=== PATIENT | male | born 1975 | race Caucasian/White ===

== ENCOUNTER → 2017-02-19 | Outpatient (CLI) | payer BC ==
[~2017-02-19] MED LIST: BAYE325T12 PO; OMEP20CA3 PO
[2017-02-19 15:50] LABS: MEAN CORPUSCULAR HEMOGLOBIN 31.8 pg (27.0-33.0); MEAN CORPUSCULAR HGB CONC 35.5 g/dl (32.0-36.5); MEAN CORPUSCULAR VOLUME 89.4 fl (80.0-96.0); RED CELL DISTRIBUTION WIDTH 13.2 % (11.5-14.5); WHITE BLOOD COUNT 8.9 K/mm3 (4.0-10.0)
--- NOTE | 2017-02-19 15:57 | REP ---
PA and lateral chest: Comparison is 03/09/2012. The lung martino are clear. The cardiac size is normal The artie, mediastinum, and bony thorax are unremarkable. Impression: Negative PA and lateral chest. There is no interval change. Signed by Koby Melendrez MD 02/19/2017 03:48 P
[2017-02-19 16:14] LABS: ALBUMIN 4.1 GM/DL (3.2-5.2); ALBUMIN/GLOBULIN RATIO 1.37 (1.00-1.93); ALKALINE PHOSPHATASE 49 U/L (45-117); ALT/SGPT 59 U/L (12-78); ANION GAP 7 MEQ/L (8-16); AST/SGOT 29 U/L (15-37); BILIRUBIN,TOTAL 0.9 MG/DL (0.2-1.0); BLOOD UREA NITROGEN 15 MG/DL (7-18); CALCIUM LEVEL 8.8 MG/DL (8.5-10.1); CARBON DIOXIDE LEVEL 26 MEQ/L (21-32); CHLORIDE LEVEL 103 MEQ/L (98-107); CHOLESTEROL LEVEL 198 MG/DL (<200); CREATININE FOR GFR 0.96 MG/DL (0.70-1.30); GLOMERULAR FILTRATION RATE > 60.0 (>60); GLUCOSE, FASTING 95 MG/DL (70-105); SODIUM LEVEL 136 MEQ/L (136-145); TOTAL PROTEIN 7.1 GM/DL (6.4-8.2); TRIGLYCERIDES LEVEL 185 MG/DL (<150)
--- NOTE | 2017-02-19 19:15 | ECGEPIP ---
Stationary ECG Study [facility] Test Date: 2017-02-19 Pat Name: CORTES GALLEGOS Department: Room: - Gender: M Insurance Sales Agent: JONNA : [id number] Requested By: Yasir Greene Order Number: [id number] Reading MD: Gopal Olivo Measurements Intervals [place] Rate: 75 P: 15 FL: 143 QRS: -15 QRSD: 73 T: 7 QT: 356 QTc: 398 Interpretive Statements Normal sinus rhythm. Prominent voltage in aVL suggestive of LVH by Cody criteria. Subtle T-wave flattening. No prior tracing for comparison. Clinical correlation advised Electronically Signed On 02-19-2017 19:15:10 EDT by Gopal Olivo
== END ==
LOC: M LAB 14:59
PROVIDERS: ATTEND Family Medicine
DX: I10 Essential (primary) hypertension (principal)

== ENCOUNTER → 2017-02-23 | Outpatient (CLI) | payer BC ==
--- NOTE | 2017-02-23 13:21 | REP ---
REASON: Right arm weakness and slurred speech. COMPARISON: None. The craniovertebral junction is within normal limits. No abnormal signal is seen in the imaged portions of the spinal cord. The ventricles and sulci are within normal limits. There are no extra-axial fluid collections. There is no shift of the midline structures. There is floor hypersignal in the left posterior temporoparietal region which is of DWI high signal and slight ADC low signal. The deep cerebral white matter is otherwise unremarkable. The orbital and petrous structures, cerebellopontine angles, and posterior fossa are within normal limits. The sella turcica, cavernous, and paracavernous structures are within normal limits. There is T2 hypersignal in the posterior sphenoid sinus. The remainder of the paranasal sinuses and mastoid air cells are essentially clear. IMPRESSION: 1. There is an acute left posterior temporoparietal lobe infarct. This is non-hemorrhagic. A stat report was generated and faxed to the attention of Dr. Morin the ordering physician at the time of this dictation. In addition, a phone call was placed to Dr. Morin. 2. Bilateral maxillary sinus mucous retention cysts versus fluid in the posterior sphenoid sinus. Signed by Devin Cool DO 02/23/2017 04:30 P
== END ==
LOC: M RAD 10:23
PROVIDERS: ATTEND Family Medicine
DX: G45.9 Transient cerebral ischemic attack, unspecified (principal); I10 Essential (primary) hypertension
CPT/HCPCS: 70553; A9576

== ENCOUNTER → 2017-02-25 | Outpatient (REF) | payer BC ==
[2017-03-06 14:14] LABS: SJOGREN'S ANTI SS-A <0.2 AI (0.0-0.9); SJOGREN'S ANTI SS-B <0.2 AI (0.0-0.9)
== END ==
LOC: M LABNEURO 15:47
PROVIDERS: ATTEND Psychiatry & Neurology Neurology
DX: I63.9 Cerebral infarction, unspecified (principal)

== ENCOUNTER 2017-03-25 13:14 | Outpatient (CLI) | payer BC ==
[2017-03-25] MEDS ORDERED: D5W 1,000 ML IV SCH (13:30)
[2017-03-25] MEDS ORDERED: OMEP20CA3 PO (14:01)
[2017-03-25] MEDS ORDERED: BAYE325T12 PO (14:02)
[2017-03-25] MEDS ORDERED: LIDOCAINE VISCOUS 2% SOLN 15ML UDC As Ordered ONE (14:18)
[2017-03-25] MEDS ORDERED: MIDAZOLAM INJ 2 MG/2 ML VIAL (J2250) As Ordered ONE ×2 (14:19→14:37)
--- NOTE | 2017-03-25 15:15 | T-ECHO ---
DATE OF PROCEDURE: 03/25/2017 PREPROCEDURE DIAGNOSIS: Acute stroke. POSTPROCEDURE DIAGNOSIS: Acute stroke, normal DOMINIC. FINDINGS: Normal transesophageal echocardiogram. No filling contrast shunting. PROCEDURE: Transesophageal echocardiogram with saline contrast. SURGEON: Mauricio Schafer MD AUTOM[employer]BI[employer] MECHANIC: None. LIGHT CONSCIOUS SEDATION: Midazolam 8 mg IV. COMPLICATIONS: None. DESCRIPTION OF PROCEDURE: Rhythm was sinus. The patient received Viscus lidocaine 2% to gargle at the start of the procedure. He received a total of 8 mg of midazolam IV for light conscious sedation. The patient tolerated the procedure well without any immediate complications. Esophageal intubation was accomplished without difficulty using a Benji multiplane two-dimensional phased-array transesophageal echocardiogram probe. The left and right ventricles appeared normal in size and systolic function. No regional wall motion abnormalities. Atria were normal situs. Intraatrial septum was intact and without atrioseptal defect. A total of three saline contrast ejections were performed with 1 mL of blood mixed into each saline contrast syringe. Valsalva maneuver release was performed with Valsalva maneuver release for each saline contrast injection. No intracardiac shunts were seen. Specifically, no atrioseptal defect or intraatrial septal aneurysm or patent foramen ovale. All the cardiac valves appeared structurally normal. Very mild mitral regurgitation is present. No pericardial effusion. Distal aortic arch and descending thoracic aorta were normal. CONCLUSIONS: 1. Normal DOMINIC. 2. Negative for saline contrast shunting at the intraatrial level with saline contrast IV times three with Valsalva maneuver release.
[2017-03-25 15:19] VITALS: BP 123/84
== END 2017-03-25 15:25 | disposition home or self-care (01) ==
LOC: M OPP 13:14
PROVIDERS: ATTEND Internal Medicine Cardiovascular Disease
DX: I63.9 Cerebral infarction, unspecified (principal); E78.1 Pure hyperglyceridemia; E66.9 Obesity, unspecified; Z88.0 Allergy status to penicillin; Z91.02 Food additives allergy status; Z91.041 Radiographic dye allergy status
CPT/HCPCS: 93312; 93320; 93325; J2250

== ENCOUNTER → 2017-04-21 | Outpatient (REF) | payer BC ==
[2017-04-24 10:32] LABS: F8 ACTIVITY FOR F8 PANEL 189 % (57-163); F8 ACTIVITY vWB FOR F8 PANEL 141 % (50-200); F8 ANTIGEN FOR F8 PANEL 161 % (50-200); INTERPRETATION: Note (.)
== END ==
LOC: M LAB REF 16:46
PROVIDERS: ATTEND Internal Medicine Medical Oncology
DX: I63.9 Cerebral infarction, unspecified (principal)

== ENCOUNTER 2017-05-06 12:41 | Outpatient (RCR) | payer BC | END 2017-06-02 | LOC: M ST 12:41 | PROVIDERS: ATTEND Psychiatry & Neurology Neurology | DX: Z51.89 Encounter for other specified aftercare (principal); I63.9 Cerebral infarction, unspecified | CPT/HCPCS: 96105; G9162; G9163 ==

== ENCOUNTER 2017-07-01 09:00 | Outpatient (RCR) | payer BC | END 2017-07-02 | LOC: M ST 09:00 | PROVIDERS: ATTEND Psychiatry & Neurology Neurology | DX: I69.320 Aphasia following cerebral infarction (principal) ==

== ENCOUNTER 2017-07-08 09:05 | Outpatient (RCR) | payer BC | END 2017-08-02 | LOC: M ST 09:05 | DX: Z51.89 Encounter for other specified aftercare (principal); I63.9 Cerebral infarction, unspecified | CPT/HCPCS: 92507 ==

== ENCOUNTER 2020-05-29 15:17 | Emergency (ER) | payer BC, OTHER ==
[~2020-05-29] VITALS: Ht 185.4 cm; Wt 115.0 kg
[~2020-05-29 15:17] MED LIST changes: +OMEP1CAP73 PO; -OMEP20CA3 PO
[2020-05-29] MEDS ORDERED: IBUP-1022 PO (15:23)
[2020-05-29 15:33] VITALS: BP 164/110
--- NOTE | 2020-05-29 16:04 | REP ---
INDICATION: fall COMPARISON: None. TECHNIQUE: Four views obtained. FINDINGS: Four views left ankle performed. There is soft tissue swelling particularly laterally. Rounded calcification just distal to each malleolus may represent old avulsion fractures. Ankle mortise is anatomic. No acute fracture or dislocation is seen. IMPRESSION: No fracture or dislocation. <Electronically signed by Koby Traylor > 05/29/20 1600
== END 2020-05-29 16:31 | disposition home or self-care (01) ==
LOC: M ED 15:17
DX: S93.402A Sprain of unspecified ligament of left ankle, initial encounter (principal); X50.0XXA Overexertion from strenuous movement or load, initial encounter; Y92.481 Parking lot as the place of occurrence of the external cause; Y99.0 Civilian activity done for income or pay; K21.9 Gastro-esophageal reflux disease without esophagitis; Z86.73 Personal history of transient ischemic attack (TIA), and cerebral infarction without residual deficits; Z88.0 Allergy status to penicillin

== ENCOUNTER 2024-02-15 22:21 | Emergency (ER) | payer OTHER ==
[~2024-02-15] VITALS: Ht 185.4 cm; Wt 127.4 kg
[~2024-02-15 22:21] MED LIST changes: +IBUP-1022 PO
[2024-02-15] MEDS: LIDOCAINE W/EPINEPHRINE 1% 20ML VIAL SC ONE (23:46)
[2024-02-16 00:54] VITALS: BP 142/91; TEMP 97.2; O2SAT 96
[2024-02-16] MEDS: BACITRACIN OINTMENT 30GM TUBE TOP STA (00:57)
== END 2024-02-16 01:06 | disposition home or self-care (01) ==
LOC: M ED 22:21
DX: S01.81XA Laceration without foreign body of other part of head, initial encounter (principal); W01.190A Fall on same level from slipping, tripping and stumbling with subsequent striking against furniture, initial encounter; Y92.018 Other place in single-family (private) house as the place of occurrence of the external cause; Y93.9 Activity, unspecified; Y99.9 Unspecified external cause status; F17.200 Nicotine dependence, unspecified, uncomplicated; Z88.0 Allergy status to penicillin